=== PATIENT | male | born 1985 ===

== ENCOUNTER 2024-08-25 06:00 | Outpatient (CLI) | payer OTHER ==
[~2024-08-25] VITALS: Ht 175.3 cm; Wt 97.5 kg
[2024-08-25] MEDS ORDERED: ZESTRIL10 M1 PO (10:06)
[2024-08-25] MEDS ORDERED: OMEPRAZOLE20 M2 PO (10:06)
[2024-08-25] MEDS ORDERED: [UNRECOGNIZED DRUG - OTHER] (10:07)
[2024-08-25 10:08] VITALS: BP 130/81
[2024-08-25 10:37] LABS: URINE APPEARANCE Clear; URINE BILIRRUBIN Negative (NEGATIVE); URINE BLOOD Negative; URINE COLOR Yellow; URINE GLUCOSE Negative (NEGATIVE); URINE KETONE Negative (NEGATIVE); URINE LEUKOCYTE Negative; URINE NITRATE Negative; URINE PROTEIN Negative (NEGATIVE); URINE UROBILINOGEN 0.2 E.U./dl
[2024-08-25 10:39] LABS: URINE BACTERIA 14.6 uL (0.0-1933); URINE EPITHELIAL CELLS 1.5 uL (0.0-38.8); URINE WBC 2.5 uL (0.0-23.2)
[2024-08-25 10:41] LABS: URINE CAST 0.14 uL (0.0-1.40)
[2024-08-25 10:55] LABS: HEMATOCRIT 43.5 % (39.0-48.0); HEMOGLOBIN 14.9 g/dL (13-16.00); MEAN CELL VOLUME 85.9 fL (80.0-100.00); MEAN CORPUSCULAR HEMOGLOBIN 29.5 pg (27.00-32.0); MEAN CORPUSCULAR HGB CONC 34.3 g/dl (32.0-36.0); PLATELET COUNT 204 K/uL (150-450); RED BLOOD COUNT 5.07 M/uL (4.00-6.00); RED CELL DISTRIBUTION WIDTH 14.2 % (11.5-14.5)
[2024-08-25 11:17] LABS: INR 1.01; PARTIAL THROMBOPLASTIN TIME 29.3 SECONDS (22.0-34.0)
[2024-08-25 11:49] LABS: ALBUMIN 4.2 gm/dL (3.4-5.0); BILIRUBIN TOTAL 0.36 mg/dL (0.3-1.2); CALCIUM 9.3 mg/dL (8.5-10.1); CREATININE SERUM 0.64 mg/dL (0.70-1.30); GFR 138.51; GLOBULINA 3.7 G/DL (2.4-3.5); POTASSIUM 4.61 mEq/L (3.5-5.1); TOTAL PROTEIN 7.9 gm/dL (6.4-8.2)
== END 2024-08-25 06:01 | disposition home or self-care (01) ==
LOC: RAD 06:00 → CIR.AMB 07:30 → ADM 07:30 → CIR.AMB 09-01 07:30 → EDSTATUS 09-01 07:30 → CIR.AMB 09-01 09:00
PROVIDERS: ATTEND Otolaryngology
DX: D37.05 Neoplasm of uncertain behavior of pharynx (principal); R05.9 Cough, unspecified

== ENCOUNTER → 2024-11-03 | Day surgery (SDC) | payer OTHER ==
[2024-10-28 10:09] VITALS: BP 144/73
[2024-10-28 11:05] LABS: BASO % 0.4 % (0.1-1.2); EOS # 0.12 (0.04-0.54); EOS % 2.1 % (0.7-7.0); HEMATOCRIT 46.5 % (40.1-51.0); HEMOGLOBIN 15.7 g/dL (13.7-17.5); LYMPH # 1.63 (1.18-3.74); LYMPH % 28.7 % (19.3-53.1); MEAN CORPUSCULAR HEMOGLOBIN 28.8 pg (25.6-32.2); MONO # 0.48 (0.24-0.82); MONO % 8.5 % (4.7-12.5); NEUT # 3.41 (1.56-6.13); NEUT % 60.1 % (34.0-71.1); PLATELET COUNT 200 K/uL (163-369); RED BLOOD COUNT 5.46 M/uL (4.63-6.08); RED CELL DISTRIBUTION WIDTH 13.9 % (11.6-14.4)
[2024-10-28 11:10] LABS: PH,URINE 6.5 (5.0-8.0); URINE APPEARANCE Clear; URINE BILIRRUBIN Negative (NEGATIVE); URINE BLOOD Negative; URINE COLOR Yellow; URINE GLUCOSE Negative (NEGATIVE); URINE KETONE Negative (NEGATIVE); URINE LEUKOCYTE Negative; URINE NITRATE Negative; URINE PROTEIN Negative (NEGATIVE); URINE UROBILINOGEN 0.2 E.U./dl
[2024-10-28 11:12] LABS: URINE RBC 6.3 uL (0.0-20.8)
[2024-10-28 11:25] LABS: URINE BACTERIA 0 uL (0.0-1933); URINE WBC 0.6 uL (0.0-23.2)
[2024-10-28 11:57] LABS: INR 0.98; PROTHROMBIN TIME 10.7 SECONDS (9.0-11.5)
[2024-10-28 12:01] LABS: ALBUMIN 4.3 gm/dL (3.4-5.0); BILIRUBIN TOTAL 0.61 mg/dL (0.3-1.2); CALCIUM 9.2 mg/dL (8.5-10.1); CREATININE SERUM 0.64 mg/dL (0.70-1.30); GFR 138.51; GLOBULINA 3.9 G/DL (2.4-3.5); POTASSIUM 4.38 mEq/L (3.5-5.1); TOTAL PROTEIN 8.2 gm/dL (6.4-8.2)
[~2024-11-03] VITALS: Ht 175.3 cm; Wt 99.8 kg
[~2024-11-03] MED LIST: CLARITIN10 MG PO; DEXAMETHASONE SODIUM PHOSPHATE 4 MG/ML VIAL ONE; LIDOCAINE HCL 1%/EPINEPHRINE 20ML VIAL IJ ONE; OMEPRAZOLE20 M2 PO; SINGULAIR10 MG PO; SUGAMMADEX SODIUM 200 MG/2 ML VIAL IV ONE; ZESTRIL10 M1 PO; [UNRECOGNIZED DRUG - OTHER]
== END | disposition home or self-care (01) ==
LOC: ADM 10-28 08:15 → CIR.AMB 08:15
PROVIDERS: ATTEND Otolaryngology
DX: D37.032 Neoplasm of uncertain behavior of the submandibular salivary glands (principal); J39.2 Other diseases of pharynx